=== PATIENT | male | born 1975 | race Caucasian/White ===

== ENCOUNTER 2018-03-29 20:44 | Emergency (ER) | payer SELFPAY ==
[2018-03-29 21:07] VITALS: BP 163/106
--- NOTE | 2018-03-29 22:38 | XRay Report ---
FINAL REPORT PROCEDURE: Left forearm. TECHNIQUE: Two views. HISTORY: Arm injury. COMPARISON: No prior studies are available for comparison. FINDINGS: The bones appear intact without fracture or dislocation. The joint spaces appear normal. The soft tissues are unremarkable. IMPRESSION: Normal study.
[2018-03-29] MEDS ORDERED: XYLOCAINE 0.5%/ EPI 1:200,000 INFILTRATI ONE (23:24)
[2018-03-29] MEDS ORDERED: NACL 0.9% IR ONE (23:27)
[2018-03-29] MEDS ORDERED: XYLOCAINE 2%/ EPI 1:200,000 INFILTRATI ONE ×2 (23:31→23:54)
[2018-03-29] MEDS ORDERED: NACL 0.9% 500 ML IR ONE (23:31)
[2018-03-29] MEDS ORDERED: BOOSTRIX IM ONE (23:52)
[2018-03-29] MEDS ORDERED: ULTRAM PO ONE (23:55)
--- NOTE | 2018-03-29 23:55 | Emergency Department Report ---
ED Laceration HPI - HPI Chief Complaint: Laceration/Recheck/Suture Stated Complaint: LT ARM LAC Time Seen by Provider: 03/29/18 23:23 Occurred When: Today (8pm) Tetanus Status: Not up to Date Laceration Symptoms: Yes Pain, No Foreign Body Sensation, No Numbness, No Weakness Other History: 43-year-old male presents to the emergency room for 1 inch laceration of the left forearm sustained from sharp optic at home about 8 PM. Patient reports he was cutting plastic with a knife. Patient is not up-to- date on tetanus. Patient has no past medical history currently takes no medications on a daily basis and has no known drug allergies. ED Review of Systems ROS: Stated complaint: LT ARM LAC Other details as noted in HPI Comment: All other systems reviewed and negative Skin: other (cut to left forearm) ED Past Medical Hx - Past Medical History Previous Medical History?: No - Surgical History Past Surgical History?: No - Social History Smoking Status: Never Smoker Substance Use Type: None - Medications Home Medications: Home Medications Medication Instructions Recorded Confirmed Last Taken Type Cephalexin [Keflex] 500 mg PO BID 7 Days #14 capsule 03/29/18 Unknown Rx Ibuprofen [Motrin 600 MG tab] 600 mg PO Q8H PRN #30 tablet 03/29/18 Unknown Rx Laceration Physical Exam - Exam General: Vital signs noted. No distress. Alert and acting appropriately. Wound Length (cm): 1 Laceration Location: Upper Extremity (left forearm, with continuous bleeding.) Laceration Exam: Yes Normal Distal CMS, No Foreign Body, No Exposed Tendon, Vessel, or Nerve, No Tendon Injury ED Course Vital Signs 03/29/18 03/29/18 20:51 21:06 Temperature 98.3 F Pulse Rate 79 Respiratory 16 Rate Blood Pressure 174/117 Blood Pressure 163/106 [Left] O2 Sat by Pulse 95 Oximetry - Laceration /Wound Repair Left Arm Wound Location: upper extremity (left forearm) Wound Length (cm): 1 Wound's Depth, Shape: into muscle, linear Wound Explored: clean Irrigated w/ Saline (ccs): 250 Betadine Prep?: Yes Anesthesia: Lidocaine w/ Epi Volume Anesthetic (ccs): 5 Wound Debrided: minimal Wound Repaired With: sutures Suture Size/Type: 3:0, nylon Number of Sutures: 5 Layer Closure?: No Sterile Dressing Applied?: Yes (compression dressing) Progress: Patient tolerated procedure well ED Medical Decision Making - Medical Decision Making Patient has been evaluated by this provider fast track. Tramadol 50 mg given for pain management Laceration repair with lidocaine due to mouth anterior bleed 5 sutures placed Discussed patient to return back to the emergency room in 7-10 days to have sutures removed. 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 Patient didn't take [id number] Tylenol or Motrin for pain management. Critical care attestation.: If time is entered above; I have spent that time in minutes in the direct care of this critically ill patient, excluding procedure time. ED Disposition Clinical Impression: Laceration of left forearm with complication Qualifiers: Encounter type: initial encounter Qualified Code(s): S51.812A - Laceration without foreign body of left forearm, initial encounter Disposition: - TO HOME OR SELFCARE Is pt being admited?: No Does the pt Need Aspirin: No Condition: Stable Instructions: Laceration (ED), Suture Care (ED) Additional Instructions: Please keep wound clean and dry. Complete antibiotics as prescribed. Motrin or Tylenol for pain management. Return back to the emergency room in 7-10 days for suture removal. Return sooner if there is any signs of infection such as increased swelling increased pain redness or purulent discharge. Por favor, mantenga la herida limpia y seca. Complete los antibiticos segn lo prescrito. Motrin o Tylenol para el control del dolor. Regrese a la drew de emergencias en 7-10 marti para la extraccin de la sutura. Regrese antes si hay algn signo de infeccin, demetrius aumento de la inflamacin, aumento del enrojecimiento del dolor o secrecin purulenta. Prescriptions: Cephalexin [Keflex] 500 mg PO BID 7 Days #14 capsule Ibuprofen [Motrin 600 MG tab] 600 mg PO Q8H PRN #30 tablet PRN Reason: Pain Referrals: PRIMARY CARE,MD [Primary Care Provider] - 3-5 Days Forms: Work/School Release Form(ED), Accompanied Note Print Language: [id number]
== END 2018-03-30 00:40 | disposition home or self-care (01) ==
LOC: ED 20:44
DX: S51.812A Laceration without foreign body of left forearm, initial encounter (principal); W26.0XXA Contact with knife, initial encounter; Y93.89 Activity, other specified; Y92.89 Other specified places as the place of occurrence of the external cause; Y99.8 Other external cause status
CPT/HCPCS: 90471; 90715